=== PATIENT | female | born 1990 | race Caucasian/White ===

== ENCOUNTER 2017-02-23 19:43 | Emergency (ER) | payer MEDICAID ==
--- NOTE | 2017-02-24 04:36 | ER ---
ADMIT: 02/23/2017 RM/LOC: ER [facility] MR#: [id number] [address] [id number] EVAN MCARTHUR [address] [place] [address] Emergency Room Report SEX: F AGE: 26 : 1990 DATE: 02/23/2017 The patient is a 26-year-old female complaining of intermittent right flank pain for the past month. The pain will last 5-90 minutes without urgency, fevers, chills, nausea, vomiting, or dysuria, has had previous simple UTIs with in the past, never had pyelo or renal colic. Does admit to drinking considerable amounts of pop. Family history remotely positive for kidney stones. Exam remarkable for nontoxic, afebrile female. No acute distress. UA showed 3+ leukocyte esterase, 10 WBCs, 11 RBCs. Negative . Lipase 178. CRP 0.86, lactic 0.6, WBC 10.2. CT renal showed IUD, otherwise unremarkable. The patient was given Zofran and Toradol with improvement of discomfort. Macrobid 100 mg p.o. Home with Macrobid 100 mg b.i.d. x10 days. Push fluids. Follow up Dr. Bonilla. Repeat UA in 2 weeks. Bryan Ferguson MD/ tonyal JOB #: [id number] CC: Bryan Ferguson MD, Attending Physician Luis Manuel Bonilla MD, Family Physician Luis Manuel Bonilla MD
== END 2017-02-23 21:52 | disposition home or self-care (01) ==
LOC: ER 19:43
DX: N39.0 Urinary tract infection, site not specified (principal); Z88.8 Allergy status to other drugs, medicaments and biological substances